=== PATIENT | male | born 1980 ===

== ENCOUNTER 2023-08-29 00:24 | Emergency (ER) | payer OTHER, SELFPAY ==
[2023-08-29 00:53] LABS: #Basophils 0.1 thou/uL (0.0-0.2); #Eosinphils 0.1 thou/uL (0.0-0.7); #Monocytes 0.3 thou/uL (0.11-0.59); #Neutrophils 3.5 thou/uL (1.40-6.50); %Basophils 0.9 % (0.0-1.0); %Eosinophils 0.9 % (0.0-10.0); %Lymphocytes 33.8 % (21.0-51.0); %Monocytes 5.5 % (0.0-10.0); Hematocrit 47.9 % (42.0-52.0); Mean Corpuscular HGB CONC 33.3 g/dL (32.0-36.0); Mean Corpuscular Hemoglobin 31.5 pg (27.0-31.0); Mean Corpuscular Volume 94.4 fl (78.0-98.0); Mean Platelet Volume 9.7 fL (7.4-10.4); Platelet Count 132 10x3/uL (130-400); RBC Distribution Width 11.8 % (11.5-14.5); Red Blood Cell (RBC) Count 5.07 mill/uL (4.70-6.10)
[2023-08-29] MEDS ORDERED: Nitroglycerin 0.4 MG TAB 1 EACH ONE (01:05)
[2023-08-29] MEDS ORDERED: Aspirin 325 MG TAB ONE (01:05)
[2023-08-29] MEDS ORDERED: Aspirin Chewable 81 MG TAB ONE (01:12)
[2023-08-29 01:26] LABS: Acetaminophen Less than 10 mcg/mL (10.0-30.0); Alcohol Less than 10.0 mg/dL (Less than 10); Salicylate Less than 8.0 mg/dL (15.0-30.0)
[2023-08-29 01:28] LABS: ALT (SGPT) 29 U/L (8-55); AST (SGOT) 17 U/L (5-34); Albumin 4.1 g/dL (3.5-5.0); Alkaline Phosphatase 79 U/L (40-110); Anion Gap 16 mmol/L (10-20); BUN (Urea Nitrogen) 11 mg/dL (8.9-20.6); Bilirubin, Total 0.3 mg/dL (0.2-1.2); Calc. Creatinine Clearance 0 mL/min (70-130); Carbon Dioxide 20 mmol/L (22-29); Chloride 109 mmol/L (98-107); Estimated GFR 109; Globulin 2.5 g/dL (2.4-3.5); Glucose 142 mg/dL (70-105); Magnesium 1.9 mg/dL (1.6-2.6); Potassium 3.5 mmol/L (3.5-5.1); Protein, Total 6.6 g/dL (6.0-8.3); Sodium 141 mmol/L (136-145)
[2023-08-29 01:46] LABS: Troponin I 0.012 ng/mL (< 0.028)
[2023-08-29] MEDS ORDERED: Sodium Chloride 0.9% 500 ML ONE (01:54)
[2023-08-29 02:10] LABS: Amphetamine Not Detected (NotDetected); Barbiturates Screen Not Detected (NotDetected); Benzodiazepine Screen Not Detected (NotDetected); Cocaine Metabolite Screen Not Detected (NotDetected); Methadone Not Detected (NotDetected); Methamphetamine Not Detected (NotDetected); Opiate Screen Not Detected (NotDetected); Oxycodone Screen Not Detected (NotDetected); Phencyclidine (PCP) Not Detected (NotDetected); THC/Cannabinoid Screen Not Detected (NotDetected); Tricyclic Screen Not Detected (NotDetected)
[2023-08-29 02:32] LABS: SARS-CoV-2 NAA Rapid Test Not Detected (NotDetected)
[2023-08-29 03:58] LABS: Troponin I Less than 0.010 ng/mL (< 0.028)
== END 2023-08-29 04:05 | disposition home or self-care (01) ==
LOC: MADERS 00:24
DX: R07.89 Other chest pain (principal); R29.700 NIHSS score 0; F17.220 Nicotine dependence, chewing tobacco, uncomplicated
CPT/HCPCS: 71045; 80053; 80306; 80307; 83735; 83880; 84484; 85025; 93005; J7030; U0002